=== PATIENT | female | born 1975 | race Caucasian/White ===

== ENCOUNTER → 2017-08-16 | Outpatient (CLI) | payer OTHER | LOC: BRMIMAGING 11:17 | PROVIDERS: ATTEND Specialist | DX: M25.531 Pain in right wrist (principal); M25.532 Pain in left wrist | CPT/HCPCS: 73110-PO ==

== ENCOUNTER 2018-08-22 09:28 | Emergency (ER) | payer MEDICAID, OTHER ==
[2018-08-22 09:46] VITALS: BP 112/68
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
== END 2018-08-22 10:47 | disposition home or self-care (01) ==
LOC: CED 09:28
DX: S43.101A Unspecified dislocation of right acromioclavicular joint, initial encounter (principal); S70.11XA Contusion of right thigh, initial encounter; V18.0XXA Pedal cycle driver injured in noncollision transport accident in nontraffic accident, initial encounter; Y93.55 Activity, bike riding
CPT/HCPCS: 73030-PO; 73551-PO; 99284-ER; A4565-ER